=== PATIENT | male | born 1950 ===

== ENCOUNTER 2017-06-23 10:21 | Emergency (ER) | payer MEDICARE ==
[2017-06-23 10:51] VITALS: BMI 28.1
[2017-06-23 10:53] VITALS: BP 153/99; PULSE 68; RESP 16; TEMP 97.4; O2SAT 98
[2017-06-23 12:27] LABS: BASO % 0.3 % (0.0-2.0); EOS # 0.3 K/uL (0.0-0.7); EOS % 3.1 % (0.0-4.0); HEMOGLOBIN 16.7 g/dL (12.0-18.0); LYMPH # 2.2 K/uL (1.0-4.3); LYMPH % 23.7 % (20.0-40.0); MEAN CELL VOLUME 88.4 fl (80.0-94.0); MEAN CORPUSCULAR HEMOGLOBIN 30.3 pg (27.0-31.0); MEAN CORPUSCULAR HGB CONC 34.2 g/dL (33.0-37.0); MEAN PLATELET VOLUME 8.9 fl (7.2-11.7); MONO # 1.4 K/uL (0.0-0.8); MONO % 15.5 % (0.0-10.0); NEUT # 5.3 K/uL (1.8-7.0); NEUT % 57.4 % (50.0-75.0); RBC 5.51 Mil/uL (4.40-5.90); RED CELL DISTRIBUTION WIDTH 12.7 % (11.5-14.5); WHITE BLOOD COUNT 9.2 K/uL (4.8-10.8)
[2017-06-23 12:40] LABS: ALB/GLOB RATIO 1.2 (1.0-2.1); ALBUMIN 4.7 g/dL (3.5-5.0); ALT/SGPT 23 U/L (21-72); AST/SGOT 22 U/L (17-59); BLOOD UREA NITROGEN 12 mg/dl (9-20); CALCIUM 9.2 mg/dL (8.4-10.2); GFR AFRICAN-AMERICAN > 60; GFR NON-AFRICAN AMERICAN > 60
[2017-06-23] MEDS ORDERED: Clindamycin in NS 300 MG/50 ML BAG IV STA (12:46)
--- NOTE | 2017-06-23 13:02 | RAD ---
PROCEDURE: Right Hand Radiographs. HISTORY: R HAND PAIN COMPARISON: None. FINDINGS: BONES: No acute fracture. . Minimal deformity 5th metacarpal show -possible old remote subtle fracture healing JOINTS: Arthro pathic hypertrophic changes with subchondral cystic changes - 1st carpal metacarpal, 1st metacarpal phalangeal joint, 1st interphalangeal joint. Other digits -mostly metacarpal phalangeal and distal interphalangeal joint levels suggested. SOFT TISSUES: Triangular fibrocartilage complex faint calcifications - compatible with chondrocalcinosis. Faint well corticated ossification 2 mm bordering the navicular at the navicular radial articulation frontal view -old osseous avulsion here is 1 consideration. - a phlebolith is another. Vascular calcifications also noted. OTHER FINDINGS: None. IMPRESSION: No acute fracture or dislocation. Osteoarthrosis. Subchondral subcortical cystic changes Triangular fibrocartilage complex chondrocalcinosis
--- NOTE | 2017-06-23 14:44 | ED PDOC ---
Upper Extremity Pain/Injury Time Seen by Provider: 06/23/17 10:50 Chief Complaint (Nursing): Upper Extremity Problem/Injury Chief Complaint (Provider): Upper Extremity Problem/Injury History Per: Patient History/Exam Limitations: no limitations Onset/Duration Of Symptoms: Days (x4) Current Symptoms Are (Timing): Still Present Additional Complaint(s): 67 year old male with previous medical history of hypertension, who presents to the emergency department with a complaint of right hand injury associated with pain, swelling and a small superficial abrasion status post getting fingers caught in a refrigerator hinge while closing its door 4 days ago. Patient stated symptoms worsen today. Denied any fever or chills. PMD: Eliud Montana MD Past Medical History Reviewed: Historical Data, Nursing Documentation, Vital Signs Vital Signs: Last Vital Signs Temp 97.4 F L 06/23/17 10:51 Pulse 68 06/23/17 10:51 Resp 16 06/23/17 10:51 BP 153/99 H 06/23/17 10:51 Pulse Ox 98 06/23/17 10:51 - Medical History PMH: HTN Denies: Chronic Kidney Disease - Surgical History Surgical History: CABG (x4) - Family History Family History: States: Unknown Family Hx - Social History Current smoker - smoking cessation education provided: No Ex-Smoker (has not smoked in the last 12 months): Yes Alcohol: None Drugs: Denies - Home Medications Home Medications: Ambulatory Orders Medication Instructions Recorded Clindamycin [Cleocin] 300 mg PO Q6H #28 cap 06/23/17 - Allergies Allergies/Adverse Reactions: Allergies Allergy/AdvReac Type Severity Reaction Status Date / Time iodine Allergy RASH Verified 06/23/17 12:04 Penicillins Allergy RASH Verified 06/23/17 12:04 shellfish derived Allergy RASH Verified 06/23/17 12:04 Review of Systems ROS Statement: Except As Marked, All Systems Reviewed And Found Negative Constitutional: Negative for: Fever, Chills Musculoskeletal: Positive for: Hand Pain (right-sided superfical abrasion with swelling) Physical Exam - Reviewed Nursing Documentation Reviewed: Yes Vital Signs Reviewed: Yes - Physical Exam Appears: Positive for: Well, Non-toxic, No Acute Distress Pulses-Radial (R): 2+ Extremity: Positive for: Normal ROM (of right hand and digits), Tenderness ( right dorsal hand), Capillary Refill (<2), Swelling (and erythema of right dorsal hand), Other (1 inch superficial dorsal abrasion of right hand). 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 Negative for: Motor/Sensory Deficits - Laboratory Results Result Diagrams: 06/23/17 12:15 06/23/17 12:15 - ECG O2 Sat by Pulse Oximetry: 98 (RA) Pulse Ox Interpretation: Normal Medical Decision Making Medical Decision Making: Initial Impression: Finger injury Initial Plan: * CMP * CBC * Blood culture * Xray hand (right) * Clindamycin 300mg in 50ml IV Time: 1300 --Xray hand (right) FINDINGS: BONES: No acute fracture. . Minimal deformity 5th metacarpal show -possible old remote subtle fracture healing JOINTS: Arthro pathic hypertrophic changes with subchondral cystic changes - 1st carpal metacarpal, 1st metacarpal phalangeal joint, 1st interphalangeal joint. Other digits -mostly metacarpal phalangeal and distal interphalangeal joint levels suggested. SOFT TISSUES: Triangular fibrocartilage complex faint calcifications - compatible with chondrocalcinosis. Faint well corticated ossification 2 mm bordering the navicular at the navicular radial articulation frontal view -old osseous avulsion here is 1 consideration. - a phlebolith is another. Vascular calcifications also noted. OTHER FINDINGS: None. IMPRESSION: No acute fracture or dislocation. Osteoarthrosis. Subchondral subcortical cystic changes Triangular fibrocartilage complex chondrocalcinosis ____ Time: 1524 --Discussed results of xray with patient and ordered wrist splint for comfort. Upon reevaluation, patient is feeling better, medically stable and requires no further treatment in the ED at this time. Patient will be discharged home with Rx for Clindamycin 300mg. Counseling was provided and all questions were answered regarding diagnosis and need for follow up with orthopedist in 1-2 days. There is agreement to discharge plan. Return if symptoms persist or worsen. Clinical Impression: Hand pain Scribe Attestation: Documented by Tabatha Saldaña, acting as a scribe for Tevin Echevarria MD. Provider Scribe Attestation: All medical record entries made by the Scribe were at my direction and personally dictated by me. I have reviewed the chart and agree that the record accurately reflects my personal performance of the history, physical exam, medical decision making, and the department course for this patient. I have also personally directed, reviewed, and agree with the discharge instructions and disposition. Disposition - Clinical Impression Clinical Impression: Hand pain - Patient ED Disposition Is Patient to be Admitted: No Counseled Patient/Family Regarding: Studies Performed, Diagnosis, Need For Followup, Rx Given - Disposition Referrals: [facility] [Outside] Ricardo Montaño MD [Medical Doctor] - Disposition: Routine/Home Disposition Time: 15:24 Condition: IMPROVED Additional Instructions: follow up with ORTHOPEDIST in 1-2 days return to the ED with any worsening or concerning symptoms. Prescriptions: Clindamycin [Cleocin] 300 mg PO Q6H #28 cap Instructions: Hand Sprain (ED) Forms: [employer] ([place])
== END 2017-06-23 15:46 | disposition home or self-care (01) ==
LOC: H.ER 10:21
DX: S69.91XA Unspecified injury of right wrist, hand and finger(s), initial encounter (principal); W22.8XXA Striking against or struck by other objects, initial encounter; Y92.89 Other specified places as the place of occurrence of the external cause; I10 Essential (primary) hypertension; Z88.0 Allergy status to penicillin; Z95.1 Presence of aortocoronary bypass graft